=== PATIENT | female | born 2000 | race Two or more races ===

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

== ENCOUNTER 2021-02-13 11:52 | Outpatient (CLI) | payer OTHER ==
[~2021-02-13 11:52] MED LIST: CEPHALEXIN500 M1 PO; PRENATABS RX T1 EACH PO
[2021-02-13] MEDS ORDERED: CEPHALEXIN500 MG PO (15:34)
== END 2021-02-13 17:50 | disposition home or self-care (01) ==
LOC: OBS/DEL 11:52
PROVIDERS: ATTEND Obstetrics & Gynecology
DX: O23.42 Unspecified infection of urinary tract in pregnancy, second trimester (principal); Z3A.24 24 weeks gestation of pregnancy

== ENCOUNTER 2021-05-19 09:15 | Inpatient (IN) | payer OTHER ==
[~2021-05-19] VITALS: Ht 154.9 cm; Wt 67.6 kg
[~2021-05-19 09:15] MED LIST changes: +CEPHALEXIN500 MG PO
== END 2021-05-31 16:35 | disposition home or self-care (01) | DRG 807 ==
LOC: LDR 05-29 06:16 → OB/GYN 05-29 06:16
PROVIDERS: ADMIT Obstetrics & Gynecology; ATTEND Obstetrics & Gynecology
PROC: 10E0XZZ Delivery of Products of Conception, External Approach (ICD-10-PCS; principal; 2021-05-29)
PROC: 0W8NXZZ Division of Female Perineum, External Approach (ICD-10-PCS; 2021-05-29)
PROC: 4A1HXFZ Monitoring of Products of Conception, Cardiac Rhythm, External Approach (ICD-10-PCS; 2021-05-29)
DX: O99.824 Streptococcus B carrier state complicating childbirth (principal); Z37.0 Single live birth; Z3A.39 39 weeks gestation of pregnancy